=== PATIENT | male | born 1975 | race Caucasian/White ===

== ENCOUNTER 2021-06-06 19:43 | Emergency (ER) | payer BC, SELFPAY ==
[2021-06-06 19:57] VITALS: BP 143/94; PULSE 84; RESP 14; TEMP 36.6; O2SAT 99
--- NOTE | 2021-06-06 21:30 | ED.GENADULT ---
HPI - General Adult General Chief complaint: Wound/Laceration Stated complaint: leg lac Time Seen by Provider: 06/06/21 20:18 Source: patient Mode of arrival: ambulatory Limitations: no limitations History of Present Illness HPI narrative: Patient presents for laceration on the right lower leg that he sustained with a piece of metal sticking out of the trash bag. Patient reports that he has had his tetanus within the last year. Patient denies any other injuries or concerns. Related Data Home Medications Medication Instructions Recorded Confirmed cetirizine 10 mg capsule 10 mg PO DAILY PRN 01/25/21 01/25/21 fluticasone propionate 50 1 spray INTRANASAL DAILY 01/25/21 01/25/21 mcg/actuation nasal spray,suspension Allergies Allergy/AdvReac Type Severity Reaction Status Date / Time No Known Allergies Allergy Verified 06/06/21 20:48 Review of Systems Review of Systems: CONSTITUTIONAL: Denies fever, chills, or sweats. EYES: Denies visual changes, redness, or discharge. ENT: Denies rhinorrhea, congestion, sore throat, or otalgia. CARDIOVASCULAR: Denies chest pain, palpitations, or edema. RESPIRATORY: Denies cough or dyspnea. GASTROINTESTINAL: Denies abdominal pain, nausea, vomiting, or diarrhea. GENITOURINARY: Denies dysuria or hematuria. SKIN: Reports laceration denies rash or itching. MUSCULOSKELETAL: Denies back pain, joint pain, or myalgia. NEUROLOGIC: Denies headache, numbness, dizziness, or weakness. PSYCHIATRIC: Denies anxiety or depression. PMFSH Past Medical History Medical History (Updated 06/06/21 @ 21:34 by Eugenia Webb PA-C) Elevated BP without diagnosis of hypertension Encounter to establish care Seasonal allergies Surgical History Surgical History (Updated 01/25/21 @ 08:35 by Ramez Mejia CMA) H/O repair of rotator cuff Family History Family History (Updated 01/25/21 @ 08:35 by Ramez Mejia CMA) Grandparent Oral cancer Grandparent Cerebrovascular accident Malignant neoplasm of prostate Social History Social History (Updated 01/25/21 @ 08:29 by Ramez Mejia CMA) Smoking status: Never smoker Alcohol intake: current Substance use: never Exam Narrative: GENERAL: Well-appearing, well-nourished, and in no acute distress. HEAD: Normocephalic, atraumatic. EYES: PERRLA and EOMI. CHEST: No respiratory distress. EXTREMITIES: Normal range of motion. No edema. SKIN: Approx 8.5CM LACERATION TO THE LATERAL right lower leg. Warm, dry, no rash. NEURO: No focal deficits. Alert and oriented x3. PSYCH: Normal mood and affect. Course Vital Signs Vital signs: Vital Signs Temperature 97.9 F 06/06/21 19:57 Pulse Rate 84 06/06/21 19:57 Respiratory Rate 14 06/06/21 19:57 Blood Pressure 143/94 H 06/06/21 19:57 Pulse Oximetry 99 06/06/21 19:57 Temperature 97.9 F 06/06/21 19:57 Pulse Rate 84 06/06/21 19:57 Respiratory Rate 14 06/06/21 19:57 Blood Pressure 143/94 H 06/06/21 19:57 Pulse Oximetry 99 06/06/21 19:57 Procedures Laceration Laceration 1: Site: lower extremity Side (If applicable): right Size (cm): 8.5 Description: linear Depth: simple, single layer Local Anesthetic: lidocaine 1% Amount of anesthesia used (mL): 3 Pre-repair: irrigated extensively ====== Skin Level ====== Skin layer closed with: nylon Size (cm): 3-0 Number of sutures: 7 Technique: simple, interrupted ====== Subcutaneous Layer ====== ====== Muscle Layer ====== ====== Tendon Layer ====== Medical Decision Making MDM Narrative Medical decision making narrative: Wound care instructions discussed. Patient tolerated repair well. Discussed signs of infection require reevaluation. Vital Signs Vital Signs: Vital Signs Temperature 97.9 F 06/06/21 19:57 Pulse Rate 84 06/06/21 19:57 Respiratory Rate 14 06/06/21 19:57 Blood Pressure 143/94 H
[2021-06-06 21:57] VITALS: BP 128/93; PULSE 80; RESP 18; TEMP 36.9; O2SAT 98
== END 2021-06-06 21:57 | disposition home or self-care (01) ==
PROVIDERS: Emergency Provider Emergency Medicine
DX: S81.811A Laceration without foreign body, right lower leg, initial encounter (principal); R03.0 Elevated blood-pressure reading, without diagnosis of hypertension; W26.8XXA Contact with other sharp object(s), not elsewhere classified, initial encounter
CPT/HCPCS: 12004; 99282